=== PATIENT | male | born 1970 | race Caucasian/White ===

== ENCOUNTER 2021-02-03 12:16 | Emergency (ER) | payer BC ==
[2021-02-03 13:18] LABS: HEMOGLOBIN 13.1 gm/dl (14.0-17.5); RED BLOOD COUNT 4.16 M/UL (4.20-5.50); WHITE BLOOD COUNT 10.7 K/UL (4.5-11.0)
[2021-02-03 14:08] LABS: BUN/CREATININE RATIO 15 (0-10)
== END 2021-02-03 15:21 | disposition home or self-care (01) ==
LOC: ER1 12:16
PROVIDERS: Physician Assistant
DX: B34.9 Viral infection, unspecified (principal); Z79.899 Other long term (current) drug therapy; Z20.822 Contact with and (suspected) exposure to COVID-19
CPT/HCPCS: 0240U; 80053; 82550; 82553; 83874; 84484; 85025; 93005; 99283